=== PATIENT | female | born 1950 | race Caucasian/White ===

== ENCOUNTER → 2017-03-22 | Outpatient (CLI) | payer OTHER ==
[~2017-03-22] VITALS: Ht 160 cm; Wt 96.2 kg
== END ==
LOC: OPSV 14:48
DX: A41.9 Sepsis, unspecified organism (principal)
CPT/HCPCS: 96365; J1335; J7050

== ENCOUNTER → 2017-03-23 | Outpatient (CLI) | payer OTHER ==
[~2017-03-23] VITALS: Ht 160 cm; Wt 96.2 kg
== END ==
LOC: OPSV 13:00
DX: A41.9 Sepsis, unspecified organism (principal)
CPT/HCPCS: 96365; J1335

== ENCOUNTER → 2017-03-24 | Outpatient (CLI) | payer OTHER ==
[~2017-03-24] VITALS: Ht 160 cm; Wt 96.2 kg
== END ==
LOC: OPSV 08:47
DX: A41.9 Sepsis, unspecified organism (principal)
CPT/HCPCS: 96365; J1335; J7050

== ENCOUNTER → 2017-03-25 | Outpatient (CLI) | payer OTHER ==
[~2017-03-25] VITALS: Ht 160 cm; Wt 96.2 kg
== END ==
LOC: OPSV 07:31
DX: A41.9 Sepsis, unspecified organism (principal)
CPT/HCPCS: 96365; J1335; J7050

== ENCOUNTER → 2017-03-26 | Outpatient (CLI) | payer OTHER ==
[~2017-03-26] VITALS: Ht 160 cm; Wt 96.2 kg
[2017-03-26 10:09] LABS: HEMOGLOBIN 10.6 gm/dl (12.3-15.3); RED BLOOD COUNT 3.92 M/UL (4.00-5.10); WHITE BLOOD COUNT 6.9 K/UL (4.5-11.0)
[2017-03-26 10:30] LABS: BUN/CREATININE RATIO 23 (0-10)
== END ==
LOC: OPSV 09:00
PROVIDERS: Internal Medicine Infectious Disease
DX: N10 Acute pyelonephritis (principal); N30.01 Acute cystitis with hematuria; D72.823 Leukemoid reaction; A41.9 Sepsis, unspecified organism; M54.16 Radiculopathy, lumbar region; I10 Essential (primary) hypertension; Z16.12 Extended spectrum beta lactamase (ESBL) resistance
CPT/HCPCS: 36415; 80053; 85025; 96374